=== PATIENT | female | born 1955 | race Caucasian/White ===

== ENCOUNTER 2023-03-18 08:52 | Day surgery (SDC) | payer MEDICAID ==
[~2023-03-18] VITALS: Ht 167.6 cm; Wt 74.4 kg
[2023-03-18] MEDS ORDERED: MIDAZOLAM 5 MG/5 ML VIAL ONE (09:30)
[2023-03-18] MEDS ORDERED: fentaNYL citrate 0.05 MG/ML VIAL ONE (09:30)
[2023-03-18] MEDS ORDERED: LIDOCAINE 2% 100 MG/5 ML UJET TP ONE (09:30)
[2023-03-18] MEDS ORDERED: diphenhydrAMINE 50 MG/ML VIAL ONE (09:30)
[2023-03-18] MEDS ORDERED: fentaNYL citrate 0.05 MG/ML VIAL IVP ONE (10:10)
[2023-03-18] MEDS ORDERED: MIDAZOLAM 2 MG/2 ML VIAL IVP ONE (10:10)
== END 2023-03-18 11:10 | disposition home or self-care (01) ==
LOC: MDS 08:52 → MMU 08:53 → MDS 11:10
PROVIDERS: ATTEND Internal Medicine Gastroenterology
DX: Z12.11 Encounter for screening for malignant neoplasm of colon (principal); K57.30 Diverticulosis of large intestine without perforation or abscess without bleeding; E11.9 Type 2 diabetes mellitus without complications; J45.909 Unspecified asthma, uncomplicated; F32.A Depression, unspecified; K21.9 Gastro-esophageal reflux disease without esophagitis; Z90.710 Acquired absence of both cervix and uterus; E78.00 Pure hypercholesterolemia, unspecified; Z79.899 Other long term (current) drug therapy
CPT/HCPCS: 45378; J2250; J3010; J1200